=== PATIENT | female | born 1960 | race Caucasian/White ===

== ENCOUNTER → 2024-06-01 | Outpatient (CLI) | payer MEDICARE, SELFPAY ==
--- NOTE | 2024-06-01 14:56 | XR_ITS ---
Examination:Left hip AP, lateral, AP pelvis 3 views Technique: Hip AP lateral, AP pelvis, 3 views Exam date and time:June 01, 2024 1519 hours INDICATIONS: Left hip pain beginning 2 years ago. FINDINGS: Moderate osteopenia Mild narrowing right and left hip joints No left hip fracture or dislocation Right hip bones of the pelvis intact IMPRESSION: Mild narrowing hip joints bilaterally.
--- NOTE | 2024-06-01 14:56 | XR_ITS ---
Examination: Lumbar spine 3 views Technique one AP lateral coned lateral lower lumbar spine 3 views Exam date and time: June 01, 2024 1532 hours INDICATIONS: Lower back pain beginning 2 years ago. FINDINGS: Grade 1 anterolisthesis L5 on S1 No lumbar fracture Moderate to advanced disc narrowing L5-S1 Intact pedicles IMPRESSION: Moderate to advanced degenerative disc disease L5-S1
== END | disposition home or self-care (01) ==
LOC: CDIM 14:43
PROVIDERS: PCP Nurse Practitioner Family; Referring Provider Nurse Practitioner Family; Visit Provider Nurse Practitioner Family
DX: M25.852 Other specified joint disorders, left hip (principal); M25.851 Other specified joint disorders, right hip; M51.379 Other intervertebral disc degeneration, lumbosacral region without mention of lumbar back pain or lower extremity pain
CPT/HCPCS: 72100; 73502

== ENCOUNTER → 2024-09-06 | Outpatient (CLI) | payer MEDICARE, SELFPAY ==
--- NOTE | 2024-09-06 12:00 | XR_ITS ---
Examination: MRI lumbar spine without contrast Date and time of exam: September 06, 2024 1213 hours INDICATIONS: Low back pain radiating to the left hip beginning 2 years ago Technique: Multiple MRI axial and sagittal sections lumbar spine. Sagittal T2-weighted images, TR 3500, TE 118 T1 weighted transverse sections, TR 688 T8.5, T2-weighted sagittal sections T1 weighted sagittal sections TR 621, TE 30 T2 axial sections, TR 4, 190, TE 84. Findings: Grade 1 anterolisthesis L5 on S1 No lumbar fracture Adequate marrow signal lumbar vertebral bodies Diffuse lumbar disc degeneration L5-S1 5 mm central lumbar disc bulge contiguous with the S1 nerve roots, extending to the neural foramina and producing mild bilateral L5 ganglionic compression L4-L5 no disc protrusion L3-L4 2 mm central lumbar disc bulge L2-L3 no disc protrusion L1-L2 no disc protrusion IMPRESSION: L5-S1 5 mm central lumbar disc bulge contiguous with the right and left S1 nerve roots, extending to the neural foramina producing mild bilateral L5 ganglionic compression
== END | disposition home or self-care (01) ==
LOC: SMRI 11:51
PROVIDERS: PCP Nurse Practitioner Family; Referring Provider Nurse Practitioner Family; Visit Provider Nurse Practitioner Family
DX: M51.379 Other intervertebral disc degeneration, lumbosacral region without mention of lumbar back pain or lower extremity pain (principal); G95.20 Unspecified cord compression
CPT/HCPCS: 72148

== ENCOUNTER 2025-02-02 09:00 | Outpatient (RCR) | payer MEDICARE, SELFPAY ==
--- NOTE | 2025-01-31 14:44 | PT.OIERPT ---
PT OP Initial Eval Patient Information Outpatient Physical Therapy Treatment Date: 01/31/25 Visit Reasons: Buldging lumbar disc Medical Diagnosis: M51.369 Treatment Dx #1: Back Pain Treatment Dx #2: Hip Pain Start of Care: 01/31/25 Date of Onset: 6 months ago Smoking Status Smoking Status: Never smoker Initial Assessment Subjective: Pt is a 64 y/o female reports of chronic back and left hip pain (09/25). Pt's most recent MRI found anterolisthesis L5-S1 grade I and 5 mm central bulge at L5-S1. Pt has limitation with sitting, standing, chores, self care, walking, lifting, and performing recreational activities. Objective: L/S AROM: all motions are WFL with end range pain into extension Hip PROM: all motions are WFL Hip MMTs: grossly 3+/5 Muscle Length: Hs tightness Assessment: Pt demonstrate back pain with mobility deficits consistent with disc bulge leading to difficulty with ADLs. Pt will attempt physical therapy if pain persist Pt will be refer back to provider for further consultation. Short Term and Fpc Goals 1) Increase L/S AROM WNL in 6 wks to be able to perform chores 2) Decrease back pain to 2/10 in 6 wks to be able to sit more than 30 mins 3) Increase core strength WFL in 6 wks to be able to perform recreational activities 4) Increase hip MMTs grossly to 4-/5 in 6 wks to be able to walk more than 30 mins 5) Indep with HEP Treatment Plan 1) Manual Therapy 2) Therapeutic Activities 3) Therapeutic Exercises 4) Modalities (ice, heat) Frequency and Duration: 2 x wk for 6 wks Certification Dates: 01/31/25 to 05/02/25 Procedure Charges OP PT Eval Mod Complex 30 minutes: Yes
== END 2025-02-15 23:59 | disposition home or self-care (01) ==
LOC: CPTX 09:00
PROVIDERS: PCP Nurse Practitioner Family; Referring Provider Nurse Practitioner Family; Visit Provider Nurse Practitioner Family
DX: M51.360 Other intervertebral disc degeneration, lumbar region with discogenic back pain only (principal); R26.2 Difficulty in walking, not elsewhere classified
CPT/HCPCS: 97162